=== PATIENT | female | born 1960 | race Caucasian/White ===

== ENCOUNTER 2017-01-04 21:23 | Emergency (ER) | payer OTHER ==
[~2017-01-04] VITALS: Ht 175.3 cm; Wt 95.5 kg
[2017-01-04 21:28] VITALS: BP 149/84; PULSE 71; RESP 12; O2SAT 98
[2017-01-04 22:35] LABS: BASOPHILS % (AUTO) 0.8 % (0-3); EOSINOPHILS % (AUTO) 5.9 % (0-5); Mean Corpuscular Hemoglobin 31.4 pg (27.0-35.0); Mean Corpuscular Volume 91.6 fL (81-100); NEUTROPHILS % (AUTO) 47.7 % (40-74); Platelet Count 413 bil/L (150-400)
[2017-01-04 23:13] LABS: Magnesium 2.1 mg/dL (1.6-2.6)
--- NOTE | 2017-01-04 23:43 | ED.REPORT ---
HPI-Abd Pain F 40 and Over Date of Service January 04, 2017 ED Provider: Dr. Alfie Vick D.O. A 56 year old female with a history of IV drug use presents to the ED with constipation onset three days ago. Today, the patient strained and passed a small amount of bright red blood. The patient denies nausea, vomiting, hematemesis, abdominal pain, or other symptoms. 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 Nursing Notes Stated Complaint: CONSTIPATION/CLOTS Chief Complaint: General Complaint Nursing Notes Reviewed: Yes Allergies: Coded Allergies: No Known Allergies (Unverified , 01/04/17) General Time Seen by MD: 23:42 Chief Complaint Constipation Hx Obtained From: Patient Arrived By: Walk-in Sudden in Onset?: No Onset Occurred: 3 days ago Symptom Duration: Since onset Severity: Current: No pain currently Severity: Maximum: No pain Pertinent Negative: Relieved by nothing Recent Healthcare: No recent doctor visit Past Medical History Past Medical History IV drug use Past Surgical History None reported Smoking History Unknown if Ever Smoker Social History Drug Use: IV drugs (Heroin) Ambulatory Status Independent Review of Systems Constitutional: Denies: Fever Respiratory: Denies: Non-productive cough, Shortness of breath GI: Reports: Constipation, Hematochezia, Denies: Abdominal pain, Hematemesis, Nausea, Vomiting Complete sys rev & neg: except as marked. Physical Exam Vital Signs Vital Signs (First) Date Time Temp Pulse Resp B/P Pulse Ox O2 Delivery O2 Flow Rate FiO2 01/04/17 21:28 37.1 71 12 149/84 98 Room Air Initial VS: Reviewed Head / Eyes: Atraumatic, Normocephalic ENT: Conjunctiva normal, No scleral icterus Neck: Supple, Full range of motion Skin: Warm, Dry, No cyanosis Neurologic: Alert, Oriented, Nonfocal Psychiatric: Mood/affect normal, Behavior normal, Normal thought content General/Constitutional: Awake, Alert, No acute distress Respiratory / Chest: Breath sounds NL, Breath sounds = bilat, No respiratory distress Cardiovascular: Heart rate NL, Regular rhythm, Heart sounds NL Abdomen: Soft, Non-tender Rectum / Perineum: Atraumatic Nurse reports no hemorrhoids or active bleeding when the enema was placed. Interpretation & Diagnostics Lab Results Interpretation Result Diagram: 01/04/17221901/04/172219 Test 01/04/17 22:20 White Blood Count 11.6th/mm3 (3.8-10.1) Red Blood Count 3.92mil/mm3 (3.90-5.20) Hemoglobin 12.3g/dL (12.0-15.6) Hematocrit 35.9% (35.0-46.0) Mean Corpuscular Volume 91.6fL (81-100) Mean Corpuscular Hemoglobin 31.4pg (27.0-35.0) Mean Corpuscular Hemoglobin Concent 34.3% (32.0-37.0) Red Cell Distribution Width 12.6% (12.3-15.4) Platelet Count 413bil/L (150-400) Neutrophils (%) (Auto) 47.7% (40-74) Lymphocytes (%) (Auto) 34.3% (14-46) Monocytes (%) (Auto) 11.0% (4-12) Eosinophils (%) (Auto) 5.9% (0-5) Basophils (%) (Auto) 0.8% (0-3) Sodium Level 133mEq/L (134-144) Potassium Level 4.3mEq/L (3.5-5.2) Chloride Level 97mEq/L (97-108) Carbon Dioxide Level 25mmol/L (18-29) Blood Urea Nitrogen 12mg/dL (6-24) Creatinine 0.83mg/dL (0.57-1.00) Estimat Glomerular Filtration Rate 101mL/min (>59) Glucose Level 99mg/dL (60-99) Calcium Level 9.2mg/dL (8.5-10.1) Magnesium Level 2.1mg/dL (1.6-2.6) Total Bilirubin 0.2mg/dL (0.0-1.2) Aspartate Amino Transf (AST/SGOT) 18U/L (0-50) Alanine Aminotransferase (ALT/SGPT) 16U/L (0-32) Alkaline Phosphatase 90U/L (25-150) Total Protein 7.5g/dL (6.4-8.4) Albumin 4.2g/dL (3.4-5.0) Lipase 24U/L (13-60) X-Ray Abdominal Interpretation Large amount of stool No signs of bowel obstruction Study: Supine Interpretation / Wet Read by: Wet read ED physician Re-Eval/Medical Decision Re-Evaluation/Progress : Time of Eval: 01:26 Patient Status: Condition improved Re-Evaluation/Progress Note: Patient had a large bowel movement with no blood and feels much better. Discussed with patient x-ray and lab results, diagnosis, and plan for discharge. Follow-up and return to the ER instructions given. Patient agrees with plan for care and all questions were addressed. Counseled Regarding: Diagnosis, Lab results, Need for follow-up, When/why to return to ED Discharge & Departure Primary Impression: Constipation Constipation type: unspecified constipation type Qualified Code: K59.00 - Constipation, unspecified Additional Impression: Lower GI bleed Disposition: Home Discharge Condition All VS Reviewed: Yes Condition: Improved Patient Instructions: Constipation (ED), Rectal Bleeding (GEN) Additional Instructions: Thank you for entrusting us with your care. Increase the natural fiber in your diet. All opiates are constipating. Call your primary care provider on Saturday for a follow-up appointment. Also call the referral platen press feeder for a follow-up appointment. Return to the ER with any new or worsening symptoms. Referrals: Cee Diop PA-C (PCP) Steven Aguila MD Attestation Portions of this note were transcribed by Meli Wilhelm. I, Dr. Vick, personally performed the history, physical exam, and medical decision-making; I reviewed and confirmed the accuracy of the information in the transcribed note. Signed by: Kimmie Caputo, 01/05/2017, 02:00 copies to: Cee Diop PA-C; Steven Aguila MD, Todd P DO January 04, 2017 23:43 MELI WILHELM January 05, 2017 01:30
[2017-01-05] MEDS ORDERED: Sodium Biphos-Phos 133 mL Enema RECTAL ONE (00:25)
--- NOTE | 2017-01-05 09:46 | DRSVH ---
PROCEDURE: X-RAY ABDOMEN, ONE VIEW ([id number]) INDICATIONS: constipation, TECHNIQUE: One view of the abdomen acquired. COMPARISON: None. FINDINGS: Surgical changes and devices: None. Bowel: Bowel gas pattern is nonobstructive. Large amount of stool. Soft tissues: No suspicious abdominal calcifications. Visualized solid organ contours appear normal in size. Bones: No suspicious bony lesions. IMPRESSION: Large amount of stool in keeping with constipation. No evidence of bowel obstruction Dictated by: Arturo Prather M.D. on 01/05/2017 at 9:44 Approved by: Arturo Prather M.D. on 01/05/2017 at 9:45
== END 2017-01-05 01:37 | disposition home or self-care (01) ==
LOC: SED 21:33
DX: K59.00 Constipation, unspecified (principal); K92.2 Gastrointestinal hemorrhage, unspecified; F11.10 Opioid abuse, uncomplicated